=== PATIENT | female | born 1950 | race Caucasian/White ===

== ENCOUNTER 2016-08-14 05:42 | Inpatient (IN) | payer MEDICARE ==
--- NOTE | 2016-08-06 17:39 | HPE ---
DATE OF ADMISSION: 08/14/2016 CHIEF COMPLAINT: Neck pain, pain radiating to her right upper extremity. ATTENDING PHYSICIAN: Dr. Pires DATE OF ADMISSION: 08/14/2016 HISTORY: This is a pleasant 66-year-old patient with progressive worsening neck pain. Pain rating to her right upper extremity. She has been through physical therapy and injections in her cervical spine without improvement of her symptoms. She continues have symptoms with normal day-to-day activities and causes pain with sitting to long, standing too long and it affects her sleep and also gives her headaches. She has elected for surgery for her continued symptoms. She has consented for an anterior cervical decompression and fusion C4-5, C5-6 and C6-[address] Pires. X-rays of the cervical spine notable for a anterolisthesis 4 mm C4 on 5. There are degenerative changes at C5-6 and C6-7. MRI of her cervical spine also notable for degenerative changes most significantly at C4-5 with spondylolisthesis at that level as well as degenerative changes into space narrowing at C5-6 and C6-7. Medical optimization none. ALLERGIES: Demerol and sulfa. CURRENT MEDICATIONS: Current medications include vitamin D 1000 units 1 tablet twice a day, Prilosec 20 mg 1 tablet twice a day, amitriptyline 50 mg 1 tablet at bedtime, Celexa 20 mg 1 tablet once per day, Mobic 7.5 mg 1 tablet twice per day. She will discontinue that 5 days prior to surgery, metoprolol 50 mg tablet once per day, gabapentin 400 mg 1 tablet four times a day, lisinopril / hydrochlorothiazide 10/12.5 mg 1 tablet once per day, metformin 500 mg 1 tablet twice a day, levothyroxine 50 mcg 1 tablet once per day, vitamin B12 1000 mcg 1 tablet once per day, gemfibrozil 600 mg 1 tablet twice per day. MEDICAL HISTORY: Includes hypertension, elevated cholesterol, yrt-ugzqsak-aiyadfime diabetes, hypothyroidism, anxiety, cervical degenerative disk disease and cervical spondylolisthesis. PAST SURGERIES: She has had shoulder surgery. Nasal surgery, breast biopsies SOCIAL HISTORY: She does not smoke. She does not use alcohol. FAMILY HISTORY: Noncontributory. REVIEW OF SYSTEMS: Denies fever or chills. Denies chest pain, shortness breath or cough. Denies change in bowel or bladder habits. Denies loss of bowel or bladder control. Notes pain and stiffness in her neck radiates into her right upper extremity. Denies nausea or vomiting. Denies recent upper respiratory infection (URI) or urinary tract infection (UTI) symptoms. Physical exam today reveals a well-nourished, well-developed alert female patient. She walks with a normal gait. Her gait is not wide-based. There is some irritability with hyperextension of the neck. Deep tendon reflexes are absent in the lower extremities. There is one at the biceps, triceps and brachial radialis on exam. Clonus is negative. Olivares's is negative. The skin around the neck is intact. No erythema, edema or ecchymosis. There is no appreciable adenopathy. Lungs are clear to auscultation without rales or wheeze. Heart regular rate and rhythm. Abdomen bowel sounds are present. Current Vital signs: Height 5.3, weight 175 pounds, temperature 97.9 blood pressure 136/80, pulse 80, respirations 16. LABORATORY DATA: Glucose is 148, BUN 9, creatinine 0.76, sodium 138, potassium 4.8, INR 0.96. IMPRESSION: Symptomatic cervical spondylolisthesis C4-5 and cervical degenerative disk disease C4-5, C5-6, C6-7 with radicular leg symptoms to her right upper extremity. PLAN: She has consented for an anterior cervical decompression and fusion C4-5, C5-6 and C6-[address] Pires. TRINO
[2016-08-14] VITALS (7 sets, daily range): BP systolic 145–176; BP diastolic 70–85
[~2016-08-14] VITALS: Ht 160 cm; Wt 78.5 kg
[~2016-08-14 05:42] MED LIST: AMIT50TA PO; CELE20TA PO; ENDO5TAB7 PO; GABA-283 PO; GEMF600T PO; LEVO25TA5 PO; LISI10TA2 PO; METF500T PO; METO-207 PO; METO200T15 PO; MOBI7.5T10 PO; PRIL20TA2 PO; VITA100054 PO; VITA100072 PO
[2016-08-14] MEDS ORDERED: LR 1,000 ML IV SCH ×3 (06:00→11:45)
[2016-08-14] MEDS ORDERED: MIDAZOLAM INJ 2 MG/2 ML VIAL (J2250) As Ordered ONE (06:52)
[2016-08-14] MEDS ORDERED: fentaNYL 250 MCG/5 ML INJECTION (J3010) As Ordered ONE (06:52)
[2016-08-14] MEDS ORDERED: ROCURONIUM BROMIDE 50 MG/5 ML VIAL As Ordered ONE (06:53)
[2016-08-14] MEDS ORDERED: PROPOFOL 200 MG/20 ML VIAL As Ordered ONE (06:53)
[2016-08-14] MEDS ORDERED: LIDOCAINE 2% INJ 100 MG/5 ML SDV (FOR ANES.) As Ordered ONE (06:53)
[2016-08-14] MEDS ORDERED: METOPROLOL SUCC *XL* 25MG TAB (TopROL *XL*) As Ordered ONE (07:02)
[2016-08-14] MEDS ORDERED: SCOPOLAMINE 1.5 MG TRANSDERMAL As Ordered ONE (07:10)
[2016-08-14] MEDS ORDERED: METOPROLOL SUCC *XL* 25MG TAB (TopROL *XL*) PO ONE (07:15)
[2016-08-14] MEDS ORDERED: LIDOCAINE W/EPINEPHRINE 1% 20ML VIAL As Ordered ONE (07:17)
[2016-08-14] MEDS ORDERED: THROMBIN SOLN 20,000 UNITS KIT As Ordered ONE (07:17)
[2016-08-14] MEDS ORDERED: methylPREDNISolone 500 MG VIAL (J2930) As Ordered ONE (07:17)
[2016-08-14] MEDS ORDERED: BACITRACIN PWD 50,000 UNITS VIAL As Ordered ONE ×3 (07:18→07:55)
[2016-08-14] MEDS ORDERED: SCOPOLAMINE 1.5 MG TRANSDERMAL TOP ONE (07:30)
[2016-08-14] MEDS ORDERED: PHENYLephrine HCL 500 MCG/5 ML (100MCG/ML) SYRINGE (J2370) As Ordered ONE ×2 (07:59→09:32)
[2016-08-14] MEDS ORDERED: ePHEDrine SULFATE 25 MG/5 ML(5MG/ML) SYRINGE As Ordered ONE ×2 (07:59→09:32)
[2016-08-14] MEDS ORDERED: VASOPRESSIN INJ 20 UNITS/ML VIAL As Ordered ONE (08:22)
[2016-08-14] MEDS ORDERED: ONDANSETRON 4MG/2ML VIAL (J2405) As Ordered ONE ×2 (10:25→11:31)
[2016-08-14] MEDS ORDERED: NEOSTIGMINE 1MG/ML 5 ML SYRINGE (J2710) As Ordered ONE (10:26)
[2016-08-14] MEDS ORDERED: GLYCOPYRROLATE INJ 0.2 MG/ML 2 ML VIAL As Ordered ONE (10:26)
--- NOTE | 2016-08-14 11:19 | REP ---
Clinical: Status post anterior fusion. Technique: Portable cross-table lateral views. Findings: Final images demonstrate the patient to be status post anterior fusion at C4 - C7. Chronic changes including subtle anterolisthesis at the C3-4 level. Impression: Status post anterior fusion. Signed by Darin Hannah MD 08/14/2016 11:10 A
[2016-08-14] MEDS ORDERED: METOCLOPRAMIDE INJ 10MG/2ML VIAL (J2765) As Ordered ONE (11:32)
[2016-08-14] MEDS ORDERED: METOCLOPRAMIDE INJ 10MG/2ML VIAL (J2765) IV PRN (11:45)
[2016-08-14] MEDS ORDERED: PERCOCET 5MG/325MG TAB PO PRN ×3 (11:45→12:15)
[2016-08-14] MEDS ORDERED: ONDANSETRON 4MG/2ML VIAL (J2405) IV PRN (11:45)
[2016-08-14] MEDS ORDERED: MORPHINE 2 MG/ML 1ML SYRINGE IV PRN (11:45)
[2016-08-14] MEDS ORDERED: PROMETHAZINE INJ 25 MG/ML VIAL (J2550) As Ordered ONE (12:05)
[2016-08-14] MEDS: fentaNYL 100 MCG/2 ML INJECTION (J3010) IV PRN ×4 (12:09→12:40)
[2016-08-14] MEDS: PROMETHAZINE INJ 25 MG/ML VIAL (J2550) IV PRN ×2 (12:10→13:00)
[2016-08-14] MEDS: D5W/LR 1,000 ML IV SCH ×2 (12:15→23:52)
[2016-08-14] MEDS ORDERED: HYDROmorphone HCL 1 MG/ML SYRINGE (J1170) IV PRN (12:15)
[2016-08-14] MEDS: ONDANSETRON 4MG/2ML VIAL (J2405) IV PRN ×3 (13:00→23:51)
[2016-08-14] MEDS ORDERED: PROMETHAZINE INJ 25 MG/ML VIAL (J2550) IV ONE (13:15)
[2016-08-14] MEDS ORDERED: ONDANSETRON 4MG/2ML VIAL (J2405) IV ONE (13:15)
[2016-08-14] MEDS: HYDROmorphone HCL 1 MG/ML SYRINGE (J1170) IV PRN ×2 (15:53→18:35)
[2016-08-14] MEDS: GABAPENTIN 400 MG CAP PO SCH ×2 (16:00→21:00)
--- NOTE | 2016-08-14 17:26 | RO ---
DATE OF PROCEDURE: 08/14/2016 PREOPERATIVE DIAGNOSIS: Cervical spondylolisthesis C4-5 with right upper extremity radiculopathy, cervical spondylosis C4-5, C5-6, C6-7. POSTOPERATIVE DIAGNOSIS: Cervical spondylosis C4-5 with right upper extremity radiculopathy, cervical spondylosis C4-5, C5-6, C6-7. PROCEDURE PERFORMED: Anterior cervical decompression and fusion procedure including decompression of the thecal sac and exiting nerve roots at C4-5 level including reduction of the spondylolisthesis at C4-5, anterior cervical decompression and fusion at C5-6 additional level, anterior cervical decompression and fusion at C6-7 additional level. Use of structural allograft for spine surgery C4-5, C5-6 and C6-7, application of anterior instrumentation for spine surgery C4, C5, C6, C7. SURGEON: Dr. Maldonado Pires AGRICULTURAL PILOT: Rafael Diamond PA-C ANESTHESIA: General endotracheal. ESTIMATED BLOOD LOSS: Less than 50 mL. No complications. INDICATIONS: 66-year-old woman with longstanding neck discomfort radiating to the right, progressive over time. Imaging study evidence of spondylolisthesis at C4-5, which is dynamic on x-ray and spondylosis or degenerative change at C4-5, C5-6 and C6-7. She has elected for operative intervention. Consent was reviewed in detail with the patient, including a katie discussion of the procedure proposed, alternatives, such as doing nothing, and risks including but not limited to pain, failure, infection, bleeding, blood loss, need for more surgery, paralysis, and other problems. The patient would like to proceed with surgery. COMPONENTS USED: DePuy Cherry 45 mm plate and 14 and 15 mm screws were utilized, 14 mm screws at C4, 15 mm at C5, 14 mm at C6, 15 mm on the left side at C7, 14 mm on the right side at C7. Grafts utilized include 5 x 7 VG2 structural allograft for spine surgery at C4-5, 4 x 6 at C5-6, 4 x 6 at C6-7. Also utilized 0.5 mL of demineralized bone matrix putty. DESCRIPTION OF PROCEDURE: Identified in the holding area, site and side verified, brought to the operating room. Once general endotracheal anesthesia was administered, she was positioned for exposure of the cervical spine. We utilized about 8 pounds of head halter traction, which was gently applied, and we obtained a cross-table lateral x-ray that revealed some reduction in the spondylolisthesis at C4-5. Next, once she was sterilely prepped and draped in the usual fashion for exposure, we began the surgical procedure. I utilized a right-sided approach to the cervical spine. I stood on the patient's right, Mr. Diamond on the left. I utilized 3.5 loupe magnification as well as a headlamp. The incision was about the three fingerbreadths long, infiltrated with 1% lidocaine with epinephrine and made with a 10 blade, developed down through skin and subcuticular tissues to the platysma. Platysma which was divided perpendicular to its fibers exposing the sternocleidomastoid muscle and omohyoid. I did ligate a vein at the level of the platysma that was crossing the operative field. The vein was ligated with a #3-0 Vicryl stitch and divided. Next, omohyoid was also divided. This allowed exposure. Next, the carotid sheath and artery were directly visualized and protected laterally. The dissection continued medially to this, and I exposed the prevertebral fascia. Prevertebral fascia was elevated off of the vertebral body of C4-5 and C5-6, and at this stage, I placed a bayonet spinal needle at C4-5 and obtained a second cross-table lateral x-ray to verify our level. Next, once this was accomplished, we marked the level using a Bovie cautery and further exposed C4-5, C5-6 and C6-7, including elevation of the medial border of the longus coli bilaterally. Next, C4-5 was approached first. Distraction pins were placed at C4-5 as well as the Shadow-Line retractor. I opened the annulus with an 11 blade. Distraction across C4-5 opened up considerably, which is in agreement with the patient's significant instability at the C4-5 level. Next, pituitary was utilized to remove disc material and curettes were utilized to remove cartilaginous endplate. The dissection continued down to the uncinate process. Some of the bur millings from the uncinate processes were retained for bone graft and pressed into the graft later. Next, once the next, once posterior longitudinal ligament (PLL) was exposed, I elevated the PLL and removed it using #1 and #2 Kerrisons exposing the thecal sac. Next, irrigation was accomplished, rasps were used through a size 5 x 7 rasp, 5 x 7 sound utilized. 5 x 7 was the appropriate size graft height for the C4-5 level. Next, the graft was obtained, the bur millings were pressed into the graft and the graft was implanted. Next, distraction pins were removed at C4, the hole plugged with bone wax, and I utilized the oval bur to contour the anterior aspect of C4 for later receiving the plate. Next, we moved to C5-6 level, which was approached in a similar fashion. We also distracted across C5-6, which also opened significantly, opened with an 11 blade, removed disc material and cartilaginous endplate. Because the patient had no significant central stenosis C5-6, the dissection continued down to the posterior longitudinal ligament. The uncinate processes were debrided, but I did not remove the posterior longitudinal ligament. Next, rasps were utilized through a size 4 x 6 and a size 4 x 6 sound was installed. This seemed to fit appropriately. I obtained and tamped into place a size 4 x 6 graft. ' Next, again the pin at C5 was removed, plugged with wax. Anterior aspect of C5 contoured using the oval bur with Mr. Diamond utilizing the curved retractors to help with exposure. Next, subluxed to the C6-7 level, and a pin was placed at C7, distracted across C6-7. Distraction across C6-7 was considerably more difficult than C5-6. This level seemed to have been more chronically collapsed down, but it was not fused. We did distract a couple of millimeters. Next, annulus was opened with an 11 blade, pituitaries were utilized to remove disc material and cartilaginous endplate here was removed using the oval bur quite carefully to avoid compromising too much of the endplates. Next, again we continued the dissection down to the posterior longitudinal ligament, which I left in place because at C6-7 there was no severe central stenosis. Next, rasps were utilized at 4 x 6, which seemed to fit appropriately and sound at 4 x 6 also fit appropriately. The 4 x 6 graft was obtained and tamped into place, fit appropriately. Next, all distraction pins were removed. Mr. Diamond exposed using the curved S retractors, and I utilized the oval bur to further contour the anterior vertebral column to receive the plate. I selected a 45 mm plate, which seemed to fit appropriately. It did stand off very slightly at C5 but only by about 1-2 mm. Next, I placed screws to secure the plate. I utilized 14 mm screws at the C4 level, 15 mm at C5, 14 mm at C6, a 15 mm on the left at C7, 14 mm on the right at C7. All screws were locked into place. Cross-table lateral images were taken to verify and confirm screw placement. Next, all retractors were removed, inspected for bleeding. Remaining demineralized bone matrix putty was injected into the plate interstice anteriorly. Next, also irrigated with concentrated bacitracin. Next, retractors removed, the platysma reapproximated with interrupted stitch, deep dermis with interrupted stitch. Dermabond utilized on skin. A collar was applied. The patient was extubated and moved to the recovery room in good condition. For further details, please refer to the medical record. Mr. Diamond was present and participated in the entirety of the case in the capacity of first assist.
[2016-08-14] MEDS ORDERED: KETOROLAC 30 MG/ML VIAL (J1885) IV ONE (20:45)
[2016-08-14] MEDS ORDERED: AMITRIPTYLINE 50 MG TAB PO SCH (21:00)
[2016-08-14] MEDS ORDERED: METOCLOPRAMIDE INJ 10MG/2ML VIAL (J2765) IV SCH (21:00)
[2016-08-14] MEDS: GEMFIBROZIL 600 MG TAB PO SCH (21:00)
[2016-08-15] MEDS: ONDANSETRON 4MG/2ML VIAL (J2405) IV PRN (05:53)
[2016-08-15 06:00] VITALS: BP 161/82
[2016-08-15] MEDS ORDERED: LEVOTHYROXINE 0.05 MG TAB (50 MCG) PO SCH (06:00)
--- NOTE | 2016-08-15 08:05 | REP ---
Clinical: Status post fusion. Comparison: 08/14/2016. Technique: AP and lateral views of the cervical spine. Findings: The patient is status post anterior fusion from C4-C7. Satisfactory hardware placement and alignment is maintained. Postsurgical prevertebral soft tissue swelling. Impression: Hardware in satisfactory position. Prevertebral soft tissue swelling. Signed by Darin Hannah MD 08/15/2016 07:56 A
[2016-08-15] MEDS ORDERED: CitaloPRAM (CeleXA) 20 MG TAB PO SCH (09:00)
[2016-08-15] MEDS ORDERED: METOPROLOL SUCC (TopROL XL) 50MG **XL** TAB PO SCH (09:00)
[2016-08-15] MEDS: GABAPENTIN 400 MG CAP PO SCH (09:57)
[2016-08-15 09:58] VITALS: BP 139/70
[2016-08-15] MEDS: GEMFIBROZIL 600 MG TAB PO SCH (09:58)
[2016-08-15] MEDS ORDERED: METOCLOPRAMIDE 10 MG TAB PO ONE (10:15)
== END 2016-08-15 10:38 | disposition home or self-care (01) | DRG 473 ==
LOC: M OR 05:42 → M MS5PR 13:20
PROVIDERS: ADMIT Orthopaedic Surgery; ATTEND Orthopaedic Surgery
PROC: 0RB30ZZ Excision of Cervical Vertebral Disc, Open Approach (ICD-10-PCS; 2016-08-14)
PROC: 01N10ZZ Release Cervical Nerve, Open Approach (ICD-10-PCS; 2016-08-14)
PROC: 0RG20A0 Fusion of 2 or more Cervical Vertebral Joints with Interbody Fusion Device, Anterior Approach, Anterior Column, Open Approach (ICD-10-PCS; principal; 2016-08-14 07:30)
DX: M43.02 Spondylolysis, cervical region (principal); Z79.899 Other long term (current) drug therapy; I10 Essential (primary) hypertension; E11.9 Type 2 diabetes mellitus without complications; E78.00 Pure hypercholesterolemia, unspecified; E03.9 Hypothyroidism, unspecified; F41.9 Anxiety disorder, unspecified

== ENCOUNTER → 2019-01-31 | Outpatient (CLI) | payer MEDICARE ==
[~2019-01-31] MED LIST changes: +ENDO5TAB PO; -ENDO5TAB7 PO; -GABA-283 PO; +GABA-845 PO; -GEMF600T PO; +GEMF600T5 PO; +LISI10TA15 PO; -LISI10TA2 PO; -METF500T PO; +METF500T13 PO; -METO-207 PO; +METO1TAB7 PO; -METO200T15 PO; +METO200T28 PO; +MOBI4TAB PO; -MOBI7.5T10 PO; +VITA100018 PO; -VITA100072 PO
--- NOTE | 2019-01-31 17:40 | REPVR ---
EXAM: MR Pelvis Without Contrast, Musculoskeletal EXAM DATE/TIME: 01/31/2019 2:29 PM CLINICAL HISTORY: 68 years old, female; Other: Incontinence and cyst; Additional info: Spinal stenosis L region wiout neurogenic theresa TECHNIQUE: Imaging protocol: Magnetic resonance images of the pelvis without intravenous contrast. Exam focused on the musculoskeletal system. COMPARISON: No relevant prior studies available. FINDINGS: Normal alignment of the SI joints. No erosive change or bone marrow edema to suggest sacroiliitis. No sacral stress fracture or insufficiency fracture. Incidental sacral Tarlov cysts are present at the S2 level with benign remodeling of the osseous neural foramina. CSF signal intensity is seen within the cysts. No identifiable mass. No reactive edema in the adjacent bone. Degenerative disc height loss and disc bulges L3-4, L4-5 and L5-S1, most severe at L4-5 with moderately severe spinal canal stenosis demonstrated on the sagittal images. No presacral soft tissue mass or fluid collection. No sciatic notch mass. IMPRESSION: Benign bilateral S2 sacral Tarlov cysts with no adjacent bony edema and no identifiable mass. These are incidental. Degenerative disc and facet arthropathy in the lower lumbar spine with spinal canal stenosis at L4-5, moderate severity No soft tissue mass or impingement on the sciatic notch Electronically signed by: Mathew Napier On 01/31/2019 17:39:47 PM
== END ==
LOC: M RAD 12:39
PROVIDERS: ATTEND Physician Assistant
DX: M48.061 Spinal stenosis, lumbar region without neurogenic claudication (principal)